=== PATIENT | male | born 1955 | race Caucasian/White ===

== ENCOUNTER 2016-11-09 12:04 | Emergency (ER) | payer OTHER ==
[2016-11-09 12:14] VITALS: BP 178/96
[2016-11-09] MEDS ORDERED: LIDOCAINE 2% URO-JET 5 ML SYRINGE UR ONE (13:00)
--- NOTE | 2016-11-09 13:10 | ED Physician Documentation ---
PD HPI ABD PAIN - Stated complaint Stated Complaint: MALE - Chief complaint Chief Complaint: Abd Pain - History obtained from History obtained from: Patient, Family - History of Present Illness Timing - onset: Other (61-year-old gentleman with history of enlarged prostate has been unable to urinate since 10 PM last night with severe suprapubic pain. This is never happened before.) Review of Systems Constitutional: denies: Fever, Chills Cardiac: denies: Chest pain / pressure, Palpitations Respiratory: denies: Dyspnea, Cough PD PAST MEDICAL HISTORY - Past Medical History Cardiovascular: Hypertension, High cholesterol, Other Respiratory: Sleep apnea, CPAP use Endocrine/Autoimmune: None GI: Colon polyps : None HEENT: None Psych: None Musculoskeletal: None Derm: None - Past Surgical History Past Surgical History: Yes General: Cholecystectomy, Colonoscopy Ortho: Other Cardiovascular: Valve replacement, AAA - Present Medications Home Medications: Ambulatory Orders Medication Instructions Recorded Confirmed Lisinopril [Zestril] 20 tab PO DAILY 12/01/12 11/09/16 Simvastatin [Zocor] 5 mg PO DAILY 12/01/12 11/09/16 Warfarin Sodium [Coumadin] 7.5 mg PO DAILY 12/01/12 11/09/16 amLODIPine [Norvasc] 5 mg ORAL DAILY 09/03/14 11/09/16 Tamsulosin [Flomax] 0.4 mg PO DAILY #14 capsule 11/09/16 - Allergies Allergies/Adverse Reactions: Allergies Allergy/AdvReac Type Severity Reaction Status Date / Time No Known Drug Allergies Allergy Verified 12/01/12 19:07 - Social History Does the pt smoke?: No Smoking Status: Never smoker Does the pt drink ETOH?: No Does the pt have substance abuse?: No - Immunizations Immunizations are current?: Yes PD ED PE NORMAL - Vitals Vital signs reviewed: Yes - General General: Alert and oriented X 3, No acute distress - Abdomen Abdomen: Soft, Other (Firm suprapubic tenderness with a very enlarged bladder on bedside ultrasound) - Neuro Neuro: Alert and oriented X 3, Normal speech - Psych Psych: Normal mood, Normal affect Results - Vitals Vitals: Vital Signs - 24 hr 11/09/16 12:11 Temperature 36.2 C L Heart Rate 95 Respiratory 18 Rate Blood Pressure 178/96 H O2 Saturation 99 Oxygen O2 Source Room air - Labs Labs: Laboratory Tests 11/09/16 11/09/16 13:15 13:19 Whole Blood INR 2.3 H Urine Color YELLOW Urine Clarity CLEAR Urine pH 6.0 Ur Specific [place] 1.010 Urine Protein NEGATIVE Urine Glucose (UA) NEGATIVE Urine Ketones NEGATIVE Urine Occult Blood LARGE H Urine Nitrite NEGATIVE Urine Bilirubin NEGATIVE Urine Urobilinogen 0.2 (NORMAL) Ur Leukocyte Esterase NEGATIVE Ur Microscopic Review INDICATED Urine Culture Comments Not Reportable PD MEDICAL DECISION MAKING - ED course ED course: After placement of a Dickson catheter initial output was about 1500 mL of urine and he had relief of his symptoms. He was counseled on Dickson catheter care and he will follow-up either with his urologist or PCP early next week for reevaluation and likely catheter removal. Departure - Departure Disposition: 01 Home, Self Care Clinical Impression: Acute urinary retention, Adequate anticoagulation on anticoagulant therapy Condition: Good Record reviewed to determine appropriate education?: Yes Instructions: ED Catheter Care Dickson, ED Retention Urinary Male Prescriptions: Tamsulosin [Flomax] 0.4 mg PO DAILY #14 capsule Comments: Follow-up with either Dr. Langford or your urologist early next week for reevaluation and likely catheter removal. Your blood pressure was elevated today on check into the emergency department. This does not mean that you have hypertension, it is a common phenomenon to come to the emergency department and have elevated blood pressure. I recommend that she see your primary care physician within the week to have it rechecked when you are feeling better.
[2016-11-09 13:31] LABS: BILIRUBIN,URINE NEGATIVE (NEGATIVE)
[2016-11-09 13:36] LABS: UA w/ MICROSCOPIC CHARGE YES
[2016-11-09 13:46] LABS: UR CULTURE IF IND INDICATED; WBC,URINE 0-3 /HPF (0-3)
== END 2016-11-09 13:58 | disposition home or self-care (01) ==
LOC: ED 12:04
DX: R33.9 Retention of urine, unspecified (principal); I10 Essential (primary) hypertension; E78.00 Pure hypercholesterolemia, unspecified; Z95.2 Presence of prosthetic heart valve; Z79.01 Long term (current) use of anticoagulants
CPT/HCPCS: 51702; 81001; 81003; 85610; 87086; 99283

== ENCOUNTER 2018-02-12 10:21 | Outpatient (CLI) | payer MEDICARE | END 2018-02-12 10:22 | disposition home or self-care (01) | LOC: SC 10:21 | PROVIDERS: ATTEND Nurse Practitioner Family | DX: G47.33 Obstructive sleep apnea (adult) (pediatric) (principal) | CPT/HCPCS: 99204; G0463; 99212 ==

== ENCOUNTER 2018-06-25 10:54 | Outpatient (CLI) | payer MEDICARE, OTHER | END 2018-06-25 10:55 | disposition home or self-care (01) | LOC: SC 10:54 | PROVIDERS: ATTEND Internal Medicine Pulmonary Disease | DX: G47.33 Obstructive sleep apnea (adult) (pediatric) (principal) | CPT/HCPCS: 99213; G0463; 99212 ==

== ENCOUNTER 2018-10-23 15:44 | Outpatient (CLI) | payer MEDICARE, OTHER ==
[2018-10-23 16:42] VITALS: BP 140/62
--- NOTE | 2018-10-23 16:42 | SLEEP CARE CONSULTATION ---
Information from patient questionnaire entered by Lea Wray. I have reviewed and concur with the information entered by Lea Wray. This document represents the service I personally performed and the decisions made by me, Oliva Duke, RN, MSN, [employer]. History of Present Illness Previous diagnosis: Moderate, Obstructive Sleep Apnea-Hypopnea Syndrome AHI: 25.3 Reason for CPAP/BiPAP follow up: other (to update device) Accompanied by: Spouse Equipment type: CPAP Equipment obtained from: [employer] [facility] Mask style: Full face (Air Fit) Mask brand: Resmed Backup mask available: Yes Last cushion change: 3 months ago HPI additional information: Transfer to [employer] [facility] [employer] has worked well and he is now getting supplies. He is here today to update his CPAP. It is getting nosier in use. It is over 5 years old this September. CPAP Compliance Data - Data Reviewed with Patient Average duration of nightly device use: 8.4 Compliance rate %: 96.7 Current pressure setting (cmH2O): 10-15 Humidity settin Heated hose settin Average residual AHI: 1.1 Average large leak: 8 secs Subjective Patient concerns: reports: air blowing in eyes (occasional only ), dry mouth, nose, throat (only if reservoir dry). denies: aerophagia, mask discomfort, mask leak noise, condensation in mask/hose, nasal congestion, epistaxis Observed to snore while using device: Yes (rare) Current pressure setting perceived as: comfortable On therapy, patient: reports: sleeping better, awakening more refreshed, being more awake and alert during the day, more rested overall. denies: drowsiness while driving Initial [place] Sleepiness Scale score: 7 Current [place] Sleepiness Scale score: 7 Allergies and Home Medications Known drug allergies: No Home medication list reviewed: Yes Allergy and home medication list: Amlodipine Besylate 5mg tab one twice daily Lisinopril 20mg tab one daily Warfarin Sodium As Directed Tamsulosin HCL 0.4mg cap one daily Vitamin D 1000IU tab one twice daily Aspirin 81mg tab one daily Ferrous Sulfate 325mg tab one daily Multivitamins Tab one daily Tylenol PM Extra Strength 2 tablets 500-25mg tab HS Docusate Sodium 100mg cap one twice daily Review of Systems Review of systems same as previous: Yes (no changes stated) Physical Exam Blood Pressure: 140/62 Heart Rate: 58 O2 Saturation: 98 Height: 6 ft 4 in Weight (kg): 110.677 kg Body Mass Index: 29.7 BMI Classification: Overweight Impression and Plan 1. Obstructive Sleep Apnea-Hypopnea Syndrome, moderate but very severe in supine position, with good treatment compliance and good apnea control. On CPAP therapy, the patient has better sleep quality and is more rested overall. Since his CPAP device is starting to make louder functioning noise and is over 5 years old, I will update his CPAP. I showed him the new [employer] and Respironics devices and he chose the Dreamstation autoCPAP. Since he is overweight, I discussed the benefit of weight loss to overall health. He was advised to lose weight and agreed. Thus I will change his CPAP pressure range to accommodate future weight loss to [phone]. He was advised to contact me if the pressure change is uncomfortable. For questions about cleaning, he was given an sheet of instructions. I also gave him a supply replacement list that is easier to use then what he has. Compliance guidelines discussed for new device and to call this office to set up appointment after he gets his device. Patient's apnea severity and rationale for treatment to reduce apnea, improve sleep quality and reduce cardiovascular and cerebrovascular events was reviewed. I also reviewed the benefit of consistent device use of CPAP for hypertension. Since his apnea is very severe in supine position, he is advised to avoid supine sleep in unable to use CPAP with pillow positioning. . * Update CPAP and set at [phone]. * Notify me if snoring with mask or feeling that the pressure is too much or too little * Attempt to lose weight * Return for follow up in 6 weeks following new device , or sooner if concerns arise I spent 100% of this 38 minute visit face to face with the patient with greater than 50% of this was spent time counseling the patient and coordination of care.
== END 2018-10-23 15:45 | disposition home or self-care (01) ==
LOC: SC 15:44
PROVIDERS: ATTEND Nurse Practitioner Family
DX: G47.33 Obstructive sleep apnea (adult) (pediatric) (principal)
CPT/HCPCS: 99214; G0463; 99212

== ENCOUNTER 2018-12-12 08:24 | Day surgery (SDC) | payer MEDICARE, OTHER ==
[2018-12-12] MEDS ORDERED: MIDAZOLAM 2 MG/2 ML VIAL IVP ONE (08:25)
[2018-12-12] MEDS ORDERED: fentaNYL 250 MCG/5 ML VIAL IVP ONE (08:25)
[2018-12-12] MEDS ORDERED: LACTATED RINGERS 1,000 ML IV ONE (08:51)
[2018-12-12 11:59] VITALS: BP 130/78
== END 2018-12-12 08:25 | disposition home or self-care (01) ==
LOC: SDS 08:24
PROVIDERS: ATTEND Surgery
PROC: 0DBN8ZZ Excision of Sigmoid Colon, Via Natural or Artificial Opening Endoscopic (ICD-10-PCS; 2018-12-12)
PROC: 0DBL8ZZ Excision of Transverse Colon, Via Natural or Artificial Opening Endoscopic (ICD-10-PCS; 2018-12-12)
PROC: 0DBM8ZZ Excision of Descending Colon, Via Natural or Artificial Opening Endoscopic (ICD-10-PCS; principal; 2018-12-12 10:15)
DX: Z12.11 Encounter for screening for malignant neoplasm of colon (principal); D12.5 Benign neoplasm of sigmoid colon; D12.3 Benign neoplasm of transverse colon; D12.4 Benign neoplasm of descending colon; K64.8 Other hemorrhoids; K57.30 Diverticulosis of large intestine without perforation or abscess without bleeding; I48.91 Unspecified atrial fibrillation; G47.33 Obstructive sleep apnea (adult) (pediatric); I10 Essential (primary) hypertension; Z95.4 Presence of other heart-valve replacement; Z79.01 Long term (current) use of anticoagulants; Z87.891 Personal history of nicotine dependence
CPT/HCPCS: 45380; 45385; J3010; J7120

== ENCOUNTER 2020-10-06 08:00 | Outpatient (CLI) | payer MEDICARE, OTHER ==
[2020-10-06 14:11] LABS: ALBUMIN 4.4 g/dL (3.2-5.5); ALBUMIN/GLOBULIN RATIO 1.8 (1.0-2.2); BILIRUBIN,TOTAL 0.7 mg/dL (0.2-1.0); TOTAL PROTEIN 6.9 g/dL (6.7-8.2)
== END 2020-10-06 23:59 | disposition home or self-care (01) ==
LOC: LAB 08:00
PROVIDERS: ATTEND Internal Medicine
DX: I10 Essential (primary) hypertension (principal)
CPT/HCPCS: 36415; 80053

== ENCOUNTER 2020-10-06 13:44 | Outpatient (CLI) | payer MEDICARE, OTHER ==
[2020-10-06] MEDS ORDERED: IOPAMIDOL-300 100 ML VIAL ONE (13:54)
[2020-10-06] MEDS ORDERED: IOPAMIDOL-300 100 ML VIAL IVP ONE (15:21)
--- NOTE | 2020-10-06 16:23 | CT Report ---
PROCEDURE: SOFT TISSUE NECK W INDICATIONS: NECK MASS CONTRAST: IV CONTRAST: Isovue 300 ml: 100 PO CONTRAST: *NO PO CONTRAST TECHNIQUE: After the administration of intravenous contrast, 3.0 mm axial sections acquired from the sella to th e aortic arch. Additional oblique axial 3.0 mm sections acquired through the pharynx. 3 mm thick co carlee reformats were generated. For radiation dose reduction, the following was used: automated exp osure control, adjustment of mA and/or kV according to patient size. COMPARISON: None. FINDINGS: Image quality: Excellent. Lymph nodes: No enlarged lymph nodes seen throughout the neck. Vessels: Visualized vasculature appears patent. Neck spaces: The oropharynx, nasopharynx, and pharynx demonstrate no mucosal lesions. The vocal cor ds, false vocal cords, pyriform sinuses, epiglottis, vallecula, and tongue base all appear normal. E xtramucosal spaces appear unremarkable. Glands: The parotid and submandibular glands appear normal. The thyroid is normal in size and there are no incidental findings. Miscellaneous: Visualized brain and orbits appear normal. Lung apices appear clear. Superficial so ft tissues appear normal. Mucosal thickening causes complete opacification of the right maxillary sin us. Mild mucosal thickening noted in the left maxillary sinus. Scattered mucosal thickening in the et hmoid air cells bilaterally. Bones: No suspicious bony lesions. Spine degenerative disc disease and facet arthropathy are noted. Visualized sinuses and mastoids appear unremarkable. IMPRESSION: 1. No mass identified deep to the metallic BB localizer placed over the anterolateral neck soft tissu es the level of the hyoid bone. 2. No lymphadenopathy based on size criteria. 3. No mucosal-based masses. Reviewed by: Tracie John MD, PhD on 10/06/2020 4:21 PM PDT Approved by: Tracie John MD, PhD on 10/06/2020 4:21 PM PDT Station ID: [id number]
== END 2020-10-06 13:45 | disposition home or self-care (01) ==
LOC: DI 13:44
PROVIDERS: ATTEND Internal Medicine
DX: R22.1 Localized swelling, mass and lump, neck (principal); I10 Essential (primary) hypertension
CPT/HCPCS: 70491; Q9967